=== PATIENT | male | born 1945 | race Caucasian/White ===

== ENCOUNTER 2021-11-21 19:24 | Inpatient (IN) ==
[2021-11-21 19:50] LABS: Basophils % 0.4 % (0.0-0.8); Eosinophils # 0.1 10*3/uL (0.0-0.87); Eosinophils % 1.7 % (0.00-10.9); Hematocrit 32.5 VOL% (42.0-52.0); Hemoglobin 10.7 GM/DL (14.0-18.0); Immature Granulocytes % 0.4 %; Immature Granulocytes Absolute 0.02 #; Lymphocytes # 0.7 10*3/uL (1.4-4.0); Lymphocytes % 15.8 % (21.2-54.2); Mean Corpuscular HGB Conc 32.9 GM/DL (32-36); Mean Corpuscular Volume 95.3 FL (87-102); Mean Platelet Volume 8.7 FL (9.6-12.0); Monocytes # 0.6 10*3/uL (0.11-0.8); Monocytes % 12.1 % (1.7-12.7); Neutrophils % 69.6 % (38.7-73.9); Platelet Count 142 T/CUMM (130-400); Red Blood Count 3.41 MC/CUMM (3.8-5.5); Red Cell Distribution Width 16.6 % (9.3-17.3); White Blood Count 4.6 T/CUMM (4-12)
[2021-11-21 20:01] LABS: INR 1.1
[2021-11-21 20:05] LABS: Albumin 2.5 G/DL (3.4-5.0); Bilirubin,Total 1.6 MG/DL (0.20-1.00); Calcium 7.2 MG/DL (8.5-10.1); Osmolality,Calculated 277.2 MOS/KG (273-304); Total Protein 5.1 G/DL (6.4-8.2)
[2021-11-21] MEDS ORDERED: SODIUM CHLORIDE 0.9% 1,000 ML IV STA (20:07)
[2021-11-21] MEDS ORDERED: ONDANSETRON 4 MG/2 ML VIAL IV PRN (21:39)
[2021-11-21] MEDS ORDERED: GLUCAGON 1 MG VIAL IM PRN (21:39)
[2021-11-21] MEDS ORDERED: DIPHENOXYLATE/ATROPINE 2.5-0.025 MG TABLET PO PRN (22:01)
[2021-11-21] MEDS ORDERED: DEXTROSE 10% 250 ML BAG IV PRN (22:27)
[2021-11-22] MEDS ORDERED: INFLUENZA VIRUS VACCINE 0.5 ML SYRINGE IM ONE (00:53)
[2021-11-22] MEDS ORDERED: PNEUMOCOCCAL VACCINE (13 VALENT) 0.5 ML SYRINGE IM ONE (00:53)
[2021-11-22 01:35] LABS: Basophils % 0.3 % (0.0-0.8); Eosinophils # 0.1 10*3/uL (0.0-0.87); Eosinophils % 3.2 % (0.00-10.9); Hematocrit 31.4 VOL% (42.0-52.0); Hemoglobin 10.5 GM/DL (14.0-18.0); Immature Granulocytes % 0.9 %; Immature Granulocytes Absolute 0.03 #; Lymphocytes # 0.7 10*3/uL (1.4-4.0); Lymphocytes % 21.1 % (21.2-54.2); Mean Corpuscular HGB Conc 33.4 GM/DL (32-36); Mean Corpuscular Volume 95.2 FL (87-102); Mean Platelet Volume 8.9 FL (9.6-12.0); Monocytes # 0.5 10*3/uL (0.11-0.8); Monocytes % 14.5 % (1.7-12.7); Platelet Count 137 T/CUMM (130-400); Red Cell Distribution Width 16.6 % (9.3-17.3); White Blood Count 3.5 T/CUMM (4-12)
[2021-11-22 02:07] LABS: Eosinophils 2 % (0-10); Lymphocytes 26 % (20-55); Platelet Estimate Adequate; Total Cells Counted 100
[2021-11-22] MEDS: ACETAMINOPHEN 325 MG TABLET PO PRN ×2 (02:26→14:55)
[2021-11-22 02:58] LABS: Albumin 2.3 G/DL (3.4-5.0); Bilirubin,Total 1.4 MG/DL (0.20-1.00); Calcium 7.3 MG/DL (8.5-10.1); Osmolality,Calculated 275.2 MOS/KG (273-304); Potassium 3.7 MMOL/L (3.5-5.1); Total Protein 5.5 G/DL (6.4-8.2)
[2021-11-22] MEDS ORDERED: ENOXAPARIN 120 MG/0.8 ML SYRINGE SUBCUT ONE (04:00)
[2021-11-22] MEDS ORDERED: ASPIRIN 325 MG TABLET PO ONE (04:00)
[2021-11-22] MEDS: ALBUTEROL 2.5 MG/3 ML NEB RESP TX SCH ×4 (07:25→19:32)
[2021-11-22] MEDS ORDERED: MIDODRINE 5 MG TABLET PO SCH (09:00)
[2021-11-22] MEDS ORDERED: ENOXAPARIN 40 MG/0.4 ML SYRINGE SUBCUT SCH (09:00)
[2021-11-22] MEDS: ATORVASTATIN 40 MG TABLET PO SCH (09:02)
[2021-11-22] MEDS: MIDODRINE 5 MG TABLET PO SCH ×3 (09:02→17:07)
[2021-11-22] MEDS: INSULIN LISPRO 100 UNIT/ML SUBCUT SCH ×4 (09:02→21:04)
[2021-11-22] MEDS: POTASSIUM CHLORIDE 10 MEQ TABLET PO SCH ×2 (09:02→21:04)
[2021-11-22] MEDS: CITALOPRAM 20 MG TABLET PO SCH (09:03)
[2021-11-22] MEDS: PANTOPRAZOLE 40 MG TABLET PO SCH (09:03)
[2021-11-22] MEDS: MORPHINE 2 MG/1 ML SYRINGE IV PRN ×2 (11:32→16:39)
[2021-11-22] MEDS: DIGOXIN 0.25 MG TABLET PO SCH (14:01)
[2021-11-22] MEDS ORDERED: TUBERCULIN SKIN TEST 0.1 ML SYRINGE INTRADERM ONE (15:27)
[2021-11-23] MEDS: ALBUTEROL 2.5 MG/3 ML NEB RESP TX SCH ×4 (00:25→20:39)
[2021-11-23] MEDS: MORPHINE 2 MG/1 ML SYRINGE IV PRN ×2 (00:51→21:29)
[2021-11-23 04:57] LABS: Basophils % 0.3 % (0.0-0.8); Eosinophils # 0.2 10*3/uL (0.0-0.87); Eosinophils % 4.1 % (0.00-10.9); Hematocrit 32.5 VOL% (42.0-52.0); Immature Granulocytes % 0.3 %; Immature Granulocytes Absolute 0.01 #; Lymphocytes # 0.9 10*3/uL (1.4-4.0); Lymphocytes % 23.8 % (21.2-54.2); Mean Corpuscular HGB Conc 33.8 GM/DL (32-36); Mean Corpuscular Volume 94.5 FL (87-102); Mean Platelet Volume 8.8 FL (9.6-12.0); Monocytes # 0.5 10*3/uL (0.11-0.8); Monocytes % 13.1 % (1.7-12.7); Neutrophils % 58.4 % (38.7-73.9); Platelet Count 138 T/CUMM (130-400); Red Blood Count 3.44 MC/CUMM (3.8-5.5); Red Cell Distribution Width 16.7 % (9.3-17.3); White Blood Count 3.7 T/CUMM (4-12)
[2021-11-23 05:17] LABS: Albumin 2.5 G/DL (3.4-5.0); Bilirubin,Total 0.9 MG/DL (0.20-1.00); Calcium 7.6 MG/DL (8.5-10.1); Osmolality,Calculated 272.5 MOS/KG (273-304); Potassium 4.6 MMOL/L (3.5-5.1); Total Protein 5.7 G/DL (6.4-8.2)
[2021-11-23] MEDS: PANTOPRAZOLE 40 MG TABLET PO SCH (08:23)
[2021-11-23] MEDS: INSULIN LISPRO 100 UNIT/ML SUBCUT SCH ×4 (08:23→22:41)
[2021-11-23] MEDS: MIDODRINE 5 MG TABLET PO SCH ×3 (08:24→17:18)
[2021-11-23] MEDS: POTASSIUM CHLORIDE 10 MEQ TABLET PO SCH ×2 (08:24→21:29)
[2021-11-23] MEDS: CITALOPRAM 20 MG TABLET PO SCH (08:24)
[2021-11-23] MEDS: ATORVASTATIN 40 MG TABLET PO SCH (08:24)
[2021-11-23] MEDS: DIGOXIN 0.25 MG TABLET PO SCH (13:39)
[2021-11-24] MEDS: ALBUTEROL 2.5 MG/3 ML NEB RESP TX SCH ×4 (01:05→19:06)
[2021-11-24] MEDS: ZINC OXIDE PASTE 113 GM TUBE TOP PRN (03:19)
[2021-11-24 05:07] LABS: Basophils % 0.3 % (0.0-0.8); Eosinophils # 0.1 10*3/uL (0.0-0.87); Eosinophils % 3.7 % (0.00-10.9); Hematocrit 33.1 VOL% (42.0-52.0); Hemoglobin 10.9 GM/DL (14.0-18.0); Immature Granulocytes % 0.8 %; Immature Granulocytes Absolute 0.03 #; Lymphocytes # 1.1 10*3/uL (1.4-4.0); Mean Corpuscular HGB Conc 32.9 GM/DL (32-36); Mean Corpuscular Volume 95.4 FL (87-102); Mean Platelet Volume 8.8 FL (9.6-12.0); Monocytes # 0.4 10*3/uL (0.11-0.8); Monocytes % 11.7 % (1.7-12.7); Neutrophils % 53.5 % (38.7-73.9); Platelet Count 131 T/CUMM (130-400); Red Blood Count 3.47 MC/CUMM (3.8-5.5); Red Cell Distribution Width 16.8 % (9.3-17.3); White Blood Count 3.8 T/CUMM (4-12)
[2021-11-24 05:34] LABS: Albumin 2.5 G/DL (3.4-5.0); Bilirubin,Total 0.9 MG/DL (0.20-1.00); Calcium 7.9 MG/DL (8.5-10.1); Osmolality,Calculated 271.4 MOS/KG (273-304); Potassium 4.3 MMOL/L (3.5-5.1); Total Protein 5.6 G/DL (6.4-8.2)
[2021-11-24] MEDS: POTASSIUM CHLORIDE 10 MEQ TABLET PO SCH ×2 (08:46→21:23)
[2021-11-24] MEDS: ATORVASTATIN 40 MG TABLET PO SCH (08:46)
[2021-11-24] MEDS: INSULIN LISPRO 100 UNIT/ML SUBCUT SCH ×4 (08:46→21:23)
[2021-11-24] MEDS: PANTOPRAZOLE 40 MG TABLET PO SCH (08:47)
[2021-11-24] MEDS: MIDODRINE 5 MG TABLET PO SCH ×3 (08:47→17:32)
[2021-11-24] MEDS: CITALOPRAM 20 MG TABLET PO SCH (08:47)
[2021-11-24] MEDS: MORPHINE 2 MG/1 ML SYRINGE IV PRN (12:01)
[2021-11-24] MEDS: DIGOXIN 0.25 MG TABLET PO SCH (12:02)
[2021-11-24] MEDS: DEXAMETHASONE 0.5 MG TABLET PO SCH (17:32)
[2021-11-24] MEDS: ACETAMINOPHEN 325 MG TABLET PO PRN (21:23)
[2021-11-25] MEDS: ALBUTEROL 2.5 MG/3 ML NEB RESP TX SCH ×4 (00:16→20:05)
[2021-11-25 06:01] LABS: Basophils % 0.2 % (0.0-0.8); Eosinophils # 0.1 10*3/uL (0.0-0.87); Eosinophils % 2.6 % (0.00-10.9); Hematocrit 33.4 VOL% (42.0-52.0); Hemoglobin 10.9 GM/DL (14.0-18.0); Immature Granulocytes % 0.5 %; Immature Granulocytes Absolute 0.02 #; Lymphocytes # 0.9 10*3/uL (1.4-4.0); Lymphocytes % 21.4 % (21.2-54.2); Mean Corpuscular HGB Conc 32.6 GM/DL (32-36); Mean Corpuscular Volume 95.2 FL (87-102); Mean Platelet Volume 9.1 FL (9.6-12.0); Monocytes # 0.5 10*3/uL (0.11-0.8); Monocytes % 10.5 % (1.7-12.7); NRBC # 0.02 10*3/uL; Neutrophils % 64.8 % (38.7-73.9); Platelet Count 127 T/CUMM (130-400); Red Blood Count 3.51 MC/CUMM (3.8-5.5); Red Cell Distribution Width 16.9 % (9.3-17.3); White Blood Count 4.3 T/CUMM (4-12)
[2021-11-25 06:23] LABS: Albumin 2.5 G/DL (3.4-5.0); Bilirubin,Total 1.1 MG/DL (0.20-1.00); Osmolality,Calculated 268.5 MOS/KG (273-304); Potassium 4.5 MMOL/L (3.5-5.1); Total Protein 5.8 G/DL (6.4-8.2)
[2021-11-25] MEDS: DEXAMETHASONE 0.5 MG TABLET PO SCH (08:54)
[2021-11-25] MEDS: PANTOPRAZOLE 40 MG TABLET PO SCH (08:54)
[2021-11-25] MEDS: CITALOPRAM 20 MG TABLET PO SCH (08:57)
[2021-11-25] MEDS: ATORVASTATIN 40 MG TABLET PO SCH (08:57)
[2021-11-25] MEDS: MIDODRINE 5 MG TABLET PO SCH ×3 (08:58→17:49)
[2021-11-25] MEDS: ACETAMINOPHEN 325 MG TABLET PO PRN (08:59)
[2021-11-25] MEDS: POTASSIUM CHLORIDE 10 MEQ TABLET PO SCH ×2 (09:00→20:56)
[2021-11-25] MEDS: INSULIN LISPRO 100 UNIT/ML SUBCUT SCH ×4 (09:01→20:56)
[2021-11-25] MEDS: ZINC OXIDE PASTE 113 GM TUBE TOP PRN (09:02)
[2021-11-25 10:37] LABS: Folate 16.94 NG/ML (5.38-24.0)
[2021-11-25 10:39] LABS: Ferritin 597.2 ng/mL (26-388)
[2021-11-25] MEDS: MORPHINE 2 MG/1 ML SYRINGE IV PRN ×2 (10:42→18:31)
[2021-11-25] MEDS: DIGOXIN 0.25 MG TABLET PO SCH (13:29)
[2021-11-25] MEDS: INSULIN NPH/REGULAR 70/30 100 UNIT/ML SUBCUT SCH (20:57)
[2021-11-26] MEDS: ALBUTEROL 2.5 MG/3 ML NEB RESP TX SCH ×2 (00:28→08:42)
[2021-11-26] MEDS: MORPHINE 2 MG/1 ML SYRINGE IV PRN (03:18)
[2021-11-26 05:47] LABS: Basophils % 0.3 % (0.0-0.8); Eosinophils # 0.2 10*3/uL (0.0-0.87); Eosinophils % 2.7 % (0.00-10.9); Hematocrit 33.4 VOL% (42.0-52.0); Hemoglobin 11.2 GM/DL (14.0-18.0); Immature Granulocytes Absolute 0.06 #; Lymphocytes # 1.4 10*3/uL (1.4-4.0); Lymphocytes % 24.1 % (21.2-54.2); Mean Corpuscular HGB Conc 33.5 GM/DL (32-36); Mean Corpuscular Volume 95.2 FL (87-102); Mean Platelet Volume 9.3 FL (9.6-12.0); Monocytes # 0.6 10*3/uL (0.11-0.8); Monocytes % 10.3 % (1.7-12.7); NRBC # 0.03 10*3/uL; Neutrophils % 61.6 % (38.7-73.9); Platelet Count 150 T/CUMM (130-400); Red Blood Count 3.51 MC/CUMM (3.8-5.5); Red Cell Distribution Width 17.1 % (9.3-17.3); White Blood Count 5.9 T/CUMM (4-12)
[2021-11-26 06:07] LABS: Albumin 2.4 G/DL (3.4-5.0); Bilirubin,Total 1.1 MG/DL (0.20-1.00); Calcium 8.4 MG/DL (8.5-10.1); Potassium 4.1 MMOL/L (3.5-5.1); Total Protein 5.9 G/DL (6.4-8.2)
[2021-11-26] MEDS: INSULIN LISPRO 100 UNIT/ML SUBCUT SCH ×2 (09:21→12:24)
[2021-11-26] MEDS: INSULIN NPH/REGULAR 70/30 100 UNIT/ML SUBCUT SCH (09:22)
[2021-11-26] MEDS: POTASSIUM CHLORIDE 10 MEQ TABLET PO SCH (09:22)
[2021-11-26] MEDS: PANTOPRAZOLE 40 MG TABLET PO SCH (09:23)
[2021-11-26] MEDS: CITALOPRAM 20 MG TABLET PO SCH (09:23)
[2021-11-26] MEDS: ATORVASTATIN 40 MG TABLET PO SCH (09:23)
[2021-11-26] MEDS: MIDODRINE 5 MG TABLET PO SCH ×2 (09:23→12:37)
[2021-11-26] MEDS: DEXAMETHASONE 0.5 MG TABLET PO SCH (09:23)
[2021-11-26] MEDS ORDERED: INFLUENZA VIRUS VACCINE 0.5 ML SYRINGE IM ONE (11:08)
[2021-11-26] MEDS ORDERED: PNEUMOCOCCAL VACCINE (13 VALENT) 0.5 ML SYRINGE IM ONE (11:30)
[2021-11-26] MEDS: DIGOXIN 0.25 MG TABLET PO SCH (12:38)
[2021-11-26 12:48] VITALS: BP 108/70
== END 2021-11-26 13:31 | disposition swing bed (61) | DRG 312 ==
LOC: EDUNIT# → EDBD → N.EDINP 19:24 → N.ED 19:24 → N.TELES 22:58 → SUATTDRO 11-22 09:34
PROVIDERS: ADMIT Family Medicine; ATTEND Internal Medicine

== ENCOUNTER 2022-02-15 14:59 | Observation (INO) ==
[~2022-02-15 14:59] MED LIST: INFLUENZA VIRUS VACCINE 0.5 ML SYRINGE IM ONE
[2022-02-15] MEDS ORDERED: ONDANSETRON 4 MG/2 ML VIAL IV STA (15:41)
[2022-02-15] MEDS ORDERED: MORPHINE 2 MG/1 ML SYRINGE IV STA (15:41)
[2022-02-15] MEDS ORDERED: SODIUM CHLORIDE 0.9% 1,000 ML IV STA (15:41)
[2022-02-15 16:01] LABS: Basophils # 0.1 10*3/uL (0.0-0.2); Basophils % 1.1 % (0.0-0.8); Eosinophils # 0.1 10*3/uL (0.0-0.87); Eosinophils % 1.5 % (0.00-10.9); Hematocrit 37.2 VOL% (42.0-52.0); Hemoglobin 12.6 GM/DL (14.0-18.0); Immature Granulocytes % 1.4 %; Immature Granulocytes Absolute 0.12 #; Lymphocytes # 2.4 10*3/uL (1.4-4.0); Lymphocytes % 27.9 % (21.2-54.2); Mean Corpuscular HGB Conc 33.9 GM/DL (32-36); Mean Corpuscular Volume 93.7 FL (87-102); Mean Platelet Volume 9.6 FL (9.6-12.0); Monocytes # 0.9 10*3/uL (0.11-0.8); Neutrophils % 57.1 % (38.7-73.9); Platelet Count 146 T/CUMM (130-400); Red Blood Count 3.97 MC/CUMM (3.8-5.5); Red Cell Distribution Width 14.8 % (9.3-17.3); White Blood Count 8.5 T/CUMM (4-12)
[2022-02-15 16:17] LABS: PT Patient Result 11.2 SECS (10.1-12.1); Partial Thromboplastin Time 27.1 SECS (23.7-32.9)
[2022-02-15 16:19] LABS: Albumin 2.8 G/DL (3.4-5.0); Bilirubin,Total 0.6 MG/DL (0.20-1.00); Calcium 8.3 MG/DL (8.5-10.1); Osmolality,Calculated 285.5 MOS/KG (273-304); Potassium 3.2 MMOL/L (3.5-5.1); Total Protein 6.1 G/DL (6.4-8.2)
[2022-02-15] MEDS ORDERED: ONDANSETRON 4 MG/2 ML VIAL IV PRN (17:44)
[2022-02-15] MEDS: SODIUM CHLORIDE 0.9% 1,000 ML IV SCH (18:00)
[2022-02-15] MEDS ORDERED: POTASSIUM CHLORIDE 20 MEQ TABLET PO ONE (18:13)
[2022-02-15] MEDS: cefTRIAXone 1,000 MG in SODIUM CHLORIDE 0.9% 100 ML IV SCH (18:45)
[2022-02-15] MEDS: metroNIDAZOLE INJ 500 MG/100 ML PREMIX IV SCH (19:00)
[2022-02-15] MEDS ORDERED: ENOXAPARIN 40 MG/0.4 ML SYRINGE SUBCUT SCH (21:00)
[2022-02-15 22:08] LABS: Hematocrit 37.3 VOL% (42.0-52.0); Hemoglobin 12.5 GM/DL (14.0-18.0)
[2022-02-16] MEDS: SODIUM CHLORIDE 0.9% 1,000 ML IV SCH ×3 (02:48→22:34)
[2022-02-16] MEDS: metroNIDAZOLE INJ 500 MG/100 ML PREMIX IV SCH ×3 (02:48→17:51)
[2022-02-16 05:01] LABS: Basophils # 0.1 10*3/uL (0.0-0.2); Eosinophils # 0.2 10*3/uL (0.0-0.87); Eosinophils % 1.9 % (0.00-10.9); Hematocrit 36.5 VOL% (42.0-52.0); Hemoglobin 12.4 GM/DL (14.0-18.0); Immature Granulocytes % 0.6 %; Immature Granulocytes Absolute 0.05 #; Mean Corpuscular Volume 94.6 FL (87-102); Mean Platelet Volume 9.8 FL (9.6-12.0); Monocytes # 0.9 10*3/uL (0.11-0.8); Neutrophils % 60.5 % (38.7-73.9); Platelet Count 154 T/CUMM (130-400); Red Blood Count 3.86 MC/CUMM (3.8-5.5); White Blood Count 7.8 T/CUMM (4-12)
[2022-02-16 05:26] LABS: Albumin 2.8 G/DL (3.4-5.0); Bilirubin,Total 0.8 MG/DL (0.20-1.00); Calcium 8.5 MG/DL (8.5-10.1); Osmolality,Calculated 279.9 MOS/KG (273-304); Potassium 3.6 MMOL/L (3.5-5.1)
[2022-02-16] MEDS ORDERED: GLUCAGON 1 MG VIAL IM PRN (08:17)
[2022-02-16] MEDS ORDERED: DEXTROSE 10% 250 ML BAG IV PRN (08:20)
[2022-02-16] MEDS: PANTOPRAZOLE 40 MG VIAL IV SCH (09:17)
[2022-02-16 10:47] LABS: Hematocrit 36.6 VOL% (42.0-52.0); Hemoglobin 12.5 GM/DL (14.0-18.0)
[2022-02-16] MEDS: INSULIN LISPRO 100 UNIT/ML SUBCUT SCH ×3 (12:19→21:51)
[2022-02-16] MEDS ORDERED: ZINC OXIDE PASTE 113 GM TUBE TOP PRN (12:33)
[2022-02-16] MEDS: DIGOXIN 0.25 MG TABLET PO SCH (14:02)
[2022-02-16] MEDS ORDERED: INSULIN GLARGINE 100 UNIT/ML SUBCUT SCH (21:00)
[2022-02-16] MEDS: cefTRIAXone 1,000 MG in SODIUM CHLORIDE 0.9% 100 ML IV SCH (21:50)
[2022-02-16] MEDS: carvediloL 25 MG TABLET PO SCH (21:50)
[2022-02-16] MEDS: DESITIN 4OZ/NYSTATIN 15 GRAM MIXTURE PASTE TOP SCH (21:51)
[2022-02-16] MEDS: MORPHINE 2 MG/1 ML SYRINGE IV PRN (23:57)
[2022-02-17] MEDS: metroNIDAZOLE INJ 500 MG/100 ML PREMIX IV SCH ×2 (02:15→11:24)
[2022-02-17] MEDS: MORPHINE 2 MG/1 ML SYRINGE IV PRN (04:39)
[2022-02-17 04:48] LABS: Basophils % 0.5 % (0.0-0.8); Eosinophils # 0.1 10*3/uL (0.0-0.87); Eosinophils % 1.4 % (0.00-10.9); Hematocrit 34.1 VOL% (42.0-52.0); Hemoglobin 11.5 GM/DL (14.0-18.0); Immature Granulocytes % 0.8 %; Immature Granulocytes Absolute 0.05 #; Lymphocytes # 1.1 10*3/uL (1.4-4.0); Lymphocytes % 16.3 % (21.2-54.2); Mean Corpuscular HGB Conc 33.7 GM/DL (32-36); Mean Corpuscular Volume 94.7 FL (87-102); Mean Platelet Volume 9.6 FL (9.6-12.0); Monocytes # 0.5 10*3/uL (0.11-0.8); Monocytes % 8.2 % (1.7-12.7); Neutrophils % 72.8 % (38.7-73.9); Platelet Count 133 T/CUMM (130-400); Red Cell Distribution Width 14.7 % (9.3-17.3); White Blood Count 6.5 T/CUMM (4-12)
[2022-02-17 05:06] LABS: Calcium 8.3 MG/DL (8.5-10.1); Osmolality,Calculated 284.2 MOS/KG (273-304)
[2022-02-17] MEDS ORDERED: MAGNESIUM SULF RIDER 2 GM/50 ML PREMIX IV ONE (07:26)
[2022-02-17] MEDS ORDERED: INSULIN GLARGINE 100 UNIT/ML SUBCUT SCH (09:00)
[2022-02-17] MEDS ORDERED: DEXAMETHASONE 0.5 MG TABLET PO SCH (09:00)
[2022-02-17] MEDS ORDERED: CITALOPRAM 20 MG TABLET PO SCH (09:00)
[2022-02-17] MEDS ORDERED: ATORVASTATIN 40 MG TABLET PO SCH (09:00)
[2022-02-17] MEDS: INSULIN LISPRO 100 UNIT/ML SUBCUT SCH ×2 (09:26→11:27)
[2022-02-17] MEDS: carvediloL 25 MG TABLET PO SCH (09:27)
[2022-02-17] MEDS: DESITIN 4OZ/NYSTATIN 15 GRAM MIXTURE PASTE TOP SCH (09:28)
[2022-02-17] MEDS: PANTOPRAZOLE 40 MG VIAL IV SCH (09:58)
[2022-02-17 14:00] VITALS: BP 147/75
[2022-02-17] MEDS: DIGOXIN 0.25 MG TABLET PO SCH (14:11)
== END 2022-02-17 14:36 | disposition home health service (06) ==
LOC: EDUNIT# → EDBD → N.EDINP 14:59 → N.ED 14:59 → N.TELES 18:30
PROVIDERS: ADMIT Internal Medicine; ATTEND Internal Medicine

== ENCOUNTER 2022-04-01 22:30 | Observation (INO) ==
[2022-04-01] MEDS ORDERED: INSULIN REGULAR 100 UNIT/ML IV STA (23:05)
[2022-04-01 23:24] LABS: Arterial Base Excess iSTAT 1 MMOL/L (-2.5-2.5); Arterial Bicarbonate iSTAT 24.8 MMOL/L (20-26); Arterial O2 Saturation iSTAT 97 % (95-100); Arterial PCO2 iSTAT 37 MM HG (35-48); Arterial PO2 iSTAT 84 MM HG (80-95); Arterial Total CO2 iSTAT 26 MMO/L (23-27)
[2022-04-01 23:29] LABS: Basophils # 0.1 10*3/uL (0.0-0.2); Basophils % 0.5 % (0.0-0.8); Eosinophils % 0.2 % (0.00-10.9); Hemoglobin 13.3 GM/DL (14.0-18.0); Immature Granulocytes % 1.7 %; Immature Granulocytes Absolute 0.18 #; Lymphocytes % 9.1 % (21.2-54.2); Mean Corpuscular HGB Conc 34.1 GM/DL (32-36); Mean Corpuscular Volume 92.6 FL (87-102); Mean Platelet Volume 9.2 FL (9.6-12.0); Monocytes # 0.5 10*3/uL (0.11-0.8); Monocytes % 4.9 % (1.7-12.7); Neutrophils % 83.6 % (38.7-73.9); Platelet Count 189 T/CUMM (130-400); Red Blood Count 4.21 MC/CUMM (3.8-5.5); Red Cell Distribution Width 14.7 % (9.3-17.3); White Blood Count 10.82 T/CUMM (4-12)
[2022-04-01] MEDS ORDERED: FUROSEMIDE 40 MG/4 ML VIAL IV STA (23:37)
[2022-04-01 23:43] LABS: INR 0.9; PT Patient Result 10.2 SECS (10.1-12.1)
[2022-04-01 23:51] LABS: Albumin 3.1 G/DL (3.4-5.0); Bilirubin,Total 0.5 MG/DL (0.20-1.00); Calcium 9.1 MG/DL (8.5-10.1); Osmolality,Calculated 293.2 MOS/KG (273-304); Potassium 4.3 MMOL/L (3.5-5.1); Total Protein 6.7 G/DL (6.4-8.2)
[2022-04-02] MEDS ORDERED: ENOXAPARIN 30 MG/0.3 ML SYRINGE SUBCUT STA (00:46)
[2022-04-02] MEDS ORDERED: ENOXAPARIN 100 MG/ML SYRINGE SUBCUT STA (00:49)
[2022-04-02] MEDS ORDERED: hydrALAZINE 20 MG/1 ML VIAL IV PRN (01:26)
[2022-04-02] MEDS ORDERED: GLUCAGON 1 MG VIAL IM PRN (01:26)
[2022-04-02] MEDS ORDERED: DEXTROSE 10% 250 ML BAG IV PRN (01:44)
[2022-04-02 03:25] LABS: Basophils % 0.3 % (0.0-0.8); Eosinophils % 0.2 % (0.00-10.9); Hematocrit 39.3 VOL% (42.0-52.0); Hemoglobin 13.2 GM/DL (14.0-18.0); Immature Granulocytes % 1.1 %; Immature Granulocytes Absolute 0.13 #; Lymphocytes # 1.5 10*3/uL (1.4-4.0); Lymphocytes % 12.9 % (21.2-54.2); Mean Corpuscular HGB Conc 33.6 GM/DL (32-36); Mean Corpuscular Volume 90.8 FL (87-102); Mean Platelet Volume 9.3 FL (9.6-12.0); Monocytes # 0.8 10*3/uL (0.11-0.8); Monocytes % 6.6 % (1.7-12.7); Neutrophils % 78.9 % (38.7-73.9); Platelet Count 187 T/CUMM (130-400); Red Blood Count 4.33 MC/CUMM (3.8-5.5); Red Cell Distribution Width 14.6 % (9.3-17.3); White Blood Count 11.76 T/CUMM (4-12)
[2022-04-02 03:44] LABS: Risk Ratio 4.71; Thyroid Stimulating Hormone 0.674 uIU/ml (0.358-3.74); VLDL Cholesterol 25.4 MG/DL
[2022-04-02 06:08] LABS: Albumin 3.3 G/DL (3.4-5.0); Bilirubin,Total 0.6 MG/DL (0.20-1.00); Calcium 9.3 MG/DL (8.5-10.1); Osmolality,Calculated 281.1 MOS/KG (273-304); Potassium 3.3 MMOL/L (3.5-5.1); Total Protein 6.7 G/DL (6.4-8.2)
[2022-04-02] MEDS: INSULIN LISPRO 100 UNIT/ML SUBCUT SCH ×4 (07:32→21:48)
[2022-04-02] MEDS: PANTOPRAZOLE 40 MG TABLET PO SCH (08:52)
[2022-04-02] MEDS: FUROSEMIDE 40 MG/4 ML VIAL IV SCH ×2 (08:53→15:55)
[2022-04-02] MEDS: ACETAMINOPHEN 325 MG TABLET PO PRN ×2 (09:56→23:41)
[2022-04-02] MEDS: POTASSIUM CHLORIDE 20 MEQ TABLET PO PRN ×2 (09:57→13:47)
[2022-04-02] MEDS ORDERED: hydroCHLOROthiazide 25 MG TABLET PO SCH (11:00)
[2022-04-02] MEDS: DEXAMETHASONE 0.5 MG TABLET PO SCH (11:59)
[2022-04-02] MEDS: CITALOPRAM 20 MG TABLET PO SCH (11:59)
[2022-04-02] MEDS: POTASSIUM CHLORIDE 20 MEQ TABLET PO SCH ×2 (11:59→21:38)
[2022-04-02] MEDS: ATORVASTATIN 40 MG TABLET PO SCH (12:00)
[2022-04-02] MEDS: carvediloL 25 MG TABLET PO SCH ×2 (12:00→21:38)
[2022-04-02] MEDS: ENALAPRIL 20 MG TABLET PO SCH ×2 (12:00→21:38)
[2022-04-02] MEDS: hydroCHLOROthiazide 25 MG TABLET PO SCH ×2 (12:03→21:38)
[2022-04-02] MEDS ORDERED: ENOXAPARIN 100 MG/ML SYRINGE SUBCUT SCH (13:00)
[2022-04-02] MEDS: DIGOXIN 0.25 MG TABLET PO SCH (13:47)
[2022-04-02] MEDS ORDERED: INSULIN NPH/REG 70/30 100 UNIT/ML SUBCUT SCH (21:00)
[2022-04-02] MEDS ORDERED: ENOXAPARIN 40 MG/0.4 ML SYRINGE SUBCUT SCH (21:00)
[2022-04-02] MEDS: APIXABAN 2.5 MG TABLET PO SCH (21:38)
[2022-04-03 03:13] LABS: Basophils % 0.3 % (0.0-0.8); Eosinophils # 0.1 10*3/uL (0.0-0.87); Eosinophils % 0.9 % (0.00-10.9); Hematocrit 39.9 VOL% (42.0-52.0); Hemoglobin 13.5 GM/DL (14.0-18.0); Immature Granulocytes % 0.9 %; Immature Granulocytes Absolute 0.11 #; Lymphocytes # 2.4 10*3/uL (1.4-4.0); Lymphocytes % 20.5 % (21.2-54.2); Mean Corpuscular HGB Conc 33.8 GM/DL (32-36); Mean Corpuscular Volume 92.1 FL (87-102); Monocytes # 0.7 10*3/uL (0.11-0.8); Monocytes % 6.2 % (1.7-12.7); Neutrophils % 71.2 % (38.7-73.9); Platelet Count 214 T/CUMM (130-400); Red Blood Count 4.33 MC/CUMM (3.8-5.5); Red Cell Distribution Width 14.6 % (9.3-17.3)
[2022-04-03 03:22] LABS: Calcium 9.1 MG/DL (8.5-10.1); Osmolality,Calculated 276.7 MOS/KG (273-304); Potassium 3.8 MMOL/L (3.5-5.1)
[2022-04-03] MEDS: INSULIN LISPRO 100 UNIT/ML SUBCUT SCH ×2 (08:39→11:39)
[2022-04-03] MEDS: PANTOPRAZOLE 40 MG TABLET PO SCH (08:41)
[2022-04-03] MEDS: hydroCHLOROthiazide 25 MG TABLET PO SCH (08:41)
[2022-04-03] MEDS: APIXABAN 2.5 MG TABLET PO SCH (08:41)
[2022-04-03] MEDS: ENALAPRIL 20 MG TABLET PO SCH (08:41)
[2022-04-03] MEDS: CITALOPRAM 20 MG TABLET PO SCH (08:42)
[2022-04-03] MEDS: carvediloL 25 MG TABLET PO SCH (08:42)
[2022-04-03] MEDS: ATORVASTATIN 40 MG TABLET PO SCH (08:42)
[2022-04-03] MEDS: POTASSIUM CHLORIDE 20 MEQ TABLET PO SCH (08:42)
[2022-04-03] MEDS: DEXAMETHASONE 0.5 MG TABLET PO SCH (08:42)
[2022-04-03] MEDS: FUROSEMIDE 40 MG/4 ML VIAL IV SCH (08:42)
[2022-04-03] MEDS ORDERED: INSULIN NPH/REG 70/30 100 UNIT/ML SUBCUT SCH (09:00)
[2022-04-03] MEDS: ACETAMINOPHEN 325 MG TABLET PO PRN (10:08)
[2022-04-03 12:00] VITALS: BP 113/66
[2022-04-03] MEDS: DIGOXIN 0.25 MG TABLET PO SCH (12:35)
== END 2022-04-03 14:23 | disposition home or self-care (01) ==
LOC: N.EDINP 22:30 → N.ED 22:30 → N.2W 04-02 03:03
PROVIDERS: ADMIT Internal Medicine; ATTEND Internal Medicine

== ENCOUNTER 2022-04-09 13:14 | Inpatient (IN) ==
[2022-04-09 14:01] LABS: Arterial Base Excess iSTAT 0 MMOL/L (-2.5-2.5); Arterial Bicarbonate iSTAT 23.7 MMOL/L (20-26); Arterial O2 Saturation iSTAT 98 % (95-100); Arterial PCO2 iSTAT 36 MM HG (35-48); Arterial PO2 iSTAT 98 MM HG (80-95); Arterial Total CO2 iSTAT 25 MMO/L (23-27); Arterial pH iSTAT 7.431 (7.35-7.45)
[2022-04-09 14:39] LABS: Basophils # 0.1 10*3/uL (0.0-0.2); Basophils % 0.8 % (0.0-0.8); Eosinophils # 0.1 10*3/uL (0.0-0.87); Hematocrit 40.2 VOL% (42.0-52.0); Hemoglobin 13.6 GM/DL (14.0-18.0); Immature Granulocytes % 2.5 %; Immature Granulocytes Absolute 0.32 #; Lymphocytes # 2.8 10*3/uL (1.4-4.0); Lymphocytes % 22.2 % (21.2-54.2); Mean Corpuscular HGB Conc 33.8 GM/DL (32-36); Mean Corpuscular Volume 94.4 FL (87-102); Mean Platelet Volume 9.1 FL (9.6-12.0); Monocytes # 0.8 10*3/uL (0.11-0.8); Monocytes % 6.4 % (1.7-12.7); Neutrophils % 67.1 % (38.7-73.9); Platelet Count 234 T/CUMM (130-400); Red Blood Count 4.26 MC/CUMM (3.8-5.5); Red Cell Distribution Width 14.6 % (9.3-17.3); White Blood Count 12.72 T/CUMM (4-12)
[2022-04-09 14:47] LABS: INR 0.9; PT Patient Result 10.1 SECS (10.1-12.1)
[2022-04-09 15:09] LABS: Albumin 3.1 G/DL (3.4-5.0); Bilirubin,Total 0.6 MG/DL (0.20-1.00); Calcium 8.7 MG/DL (8.5-10.1); Osmolality,Calculated 286.8 MOS/KG (273-304); Potassium 3.5 MMOL/L (3.5-5.1); Total Protein 6.6 G/DL (6.4-8.2)
[2022-04-09 16:59] LABS: Bacteria,Urine Occasional /HPF (Few); Hyaline Casts,Urine 29 /LPF (0-3); Mucus,Urine Occasional /LPF (Occasional); RBC,Urine 1 /HPF (0-4); Squamous Epithelial Cell,Urine Occasional /HPF (0-10)
[2022-04-09 17:02] LABS: Glucose,Urine (UA) Negative (Negative); Ketones,Urine Trace mg/dL (Negative); Protein,Urine Negative (Negative); Urine Appearance Clear (Clear); Urine Color Yellow (Yellow); Urine Specific Gravity > 1.030 (1.001-1.035)
[2022-04-09 17:03] LABS: Bilirubin,Urine Small mg/dL (Negative); Blood, Urine Negative (Negative); Nitrite,Urine Negative (Negative); Urine Urobilinogen 0.2 eU/dL (<2.0)
[2022-04-09] MEDS ORDERED: SODIUM CHLORIDE 0.9% 500 ML IV STA (17:29)
[2022-04-09] MEDS ORDERED: ASPIRIN 325 MG TABLET PO STA (17:32)
[2022-04-09] MEDS ORDERED: DOCUSATE SODIUM 100 MG CAPSULE PO PRN (18:01)
[2022-04-09] MEDS ORDERED: ONDANSETRON 4 MG/2 ML VIAL IV PRN (18:01)
[2022-04-09] MEDS ORDERED: NITROGLYCERIN SL 0.4 MG TABLET SL PRN (18:01)
[2022-04-09] MEDS ORDERED: ACETAMINOPHEN 325 MG TABLET PO PRN (18:01)
[2022-04-09] MEDS ORDERED: GLUCAGON 1 MG VIAL IM PRN (18:16)
[2022-04-09] MEDS ORDERED: DEXTROSE 10% 250 ML BAG IV PRN (18:16)
[2022-04-09 18:35] LABS: Thyroid Stimulating Hormone 4.33 uIU/ml (0.358-3.74)
[2022-04-09] MEDS: HEPARIN DRIP 25,000 UNITS/500 ML PREMIX IV SCH (19:34)
[2022-04-09] MEDS: carvediloL 25 MG TABLET PO SCH (21:11)
[2022-04-09] MEDS: INSULIN LISPRO 100 UNIT/ML SUBCUT SCH (21:11)
[2022-04-09] MEDS: ZALEPLON 5 MG CAPSULE PO SCH (22:44)
[2022-04-10 01:31] LABS: Basophils # 0.1 10*3/uL (0.0-0.2); Basophils % 0.6 % (0.0-0.8); Eosinophils # 0.1 10*3/uL (0.0-0.87); Eosinophils % 1.1 % (0.00-10.9); Hematocrit 36.9 VOL% (42.0-52.0); Hemoglobin 12.2 GM/DL (14.0-18.0); Immature Granulocytes Absolute 0.22 #; Lymphocytes # 2.7 10*3/uL (1.4-4.0); Lymphocytes % 24.9 % (21.2-54.2); Mean Corpuscular HGB Conc 33.1 GM/DL (32-36); Mean Corpuscular Volume 94.4 FL (87-102); Mean Platelet Volume 9.1 FL (9.6-12.0); Monocytes # 0.8 10*3/uL (0.11-0.8); Monocytes % 7.1 % (1.7-12.7); Neutrophils % 64.3 % (38.7-73.9); Platelet Count 205 T/CUMM (130-400); Red Blood Count 3.91 MC/CUMM (3.8-5.5); Red Cell Distribution Width 14.7 % (9.3-17.3); White Blood Count 10.88 T/CUMM (4-12)
[2022-04-10 01:40] LABS: Calcium 8.1 MG/DL (8.5-10.1); Osmolality,Calculated 285.1 MOS/KG (273-304); Potassium 3.1 MMOL/L (3.5-5.1)
[2022-04-10] MEDS: HEPARIN DRIP 25,000 UNITS/500 ML PREMIX IV SCH (08:45)
[2022-04-10 09:20] LABS: Free T4 (Free Thyroxine) 1.11 NG/DL (0.76-1.46)
[2022-04-10] MEDS: INSULIN LISPRO 100 UNIT/ML SUBCUT SCH ×4 (09:50→22:17)
[2022-04-10] MEDS ORDERED: MAGNESIUM SULF RIDER 2 GM/50 ML PREMIX IV ONE (09:52)
[2022-04-10] MEDS: CITALOPRAM 20 MG TABLET PO SCH (11:13)
[2022-04-10] MEDS: APIXABAN 2.5 MG TABLET PO SCH ×2 (11:13→22:11)
[2022-04-10] MEDS: ATORVASTATIN 40 MG TABLET PO SCH (11:14)
[2022-04-10] MEDS: PANTOPRAZOLE 40 MG TABLET PO SCH (11:14)
[2022-04-10] MEDS: FUROSEMIDE 40 MG TABLET PO SCH (11:14)
[2022-04-10] MEDS: carvediloL 25 MG TABLET PO SCH ×2 (11:14→22:11)
[2022-04-10] MEDS: POTASSIUM CHLORIDE 20 MEQ TABLET PO SCH ×4 (13:20→17:43)
[2022-04-10] MEDS: DIGOXIN 0.25 MG TABLET PO SCH (13:21)
[2022-04-10] MEDS: ZALEPLON 5 MG CAPSULE PO SCH (22:11)
[2022-04-11 04:01] LABS: Basophils # 0.1 10*3/uL (0.0-0.2); Basophils % 0.6 % (0.0-0.8); Eosinophils # 0.1 10*3/uL (0.0-0.87); Eosinophils % 1.7 % (0.00-10.9); Hemoglobin 11.5 GM/DL (14.0-18.0); Immature Granulocytes % 1.7 %; Immature Granulocytes Absolute 0.13 #; Lymphocytes % 26.2 % (21.2-54.2); Mean Corpuscular HGB Conc 32.9 GM/DL (32-36); Mean Corpuscular Volume 94.1 FL (87-102); Mean Platelet Volume 9.2 FL (9.6-12.0); Monocytes # 0.8 10*3/uL (0.11-0.8); Monocytes % 10.5 % (1.7-12.7); Neutrophils % 59.3 % (38.7-73.9); Platelet Count 196 T/CUMM (130-400); Red Blood Count 3.72 MC/CUMM (3.8-5.5); Red Cell Distribution Width 14.8 % (9.3-17.3)
[2022-04-11 04:30] LABS: Calcium 8.2 MG/DL (8.5-10.1); Osmolality,Calculated 279.4 MOS/KG (273-304); Potassium 3.6 MMOL/L (3.5-5.1)
[2022-04-11] MEDS: INSULIN LISPRO 100 UNIT/ML SUBCUT SCH ×4 (09:08→21:13)
[2022-04-11] MEDS: ASPIRIN EC 81 MG TABLET PO SCH (09:12)
[2022-04-11] MEDS: POTASSIUM CHLORIDE 20 MEQ TABLET PO SCH ×2 (09:13→21:12)
[2022-04-11] MEDS: APIXABAN 2.5 MG TABLET PO SCH ×2 (09:13→21:13)
[2022-04-11] MEDS: FUROSEMIDE 40 MG TABLET PO SCH (09:13)
[2022-04-11] MEDS: carvediloL 25 MG TABLET PO SCH ×2 (09:13→21:13)
[2022-04-11] MEDS: CITALOPRAM 20 MG TABLET PO SCH (09:13)
[2022-04-11] MEDS: PANTOPRAZOLE 40 MG TABLET PO SCH (09:14)
[2022-04-11] MEDS: ATORVASTATIN 40 MG TABLET PO SCH (09:14)
[2022-04-11] MEDS ORDERED: REGADENOSON 0.4 MG/5 ML SYRINGE IV ONE (11:50)
[2022-04-11] MEDS: DIGOXIN 0.25 MG TABLET PO SCH (12:48)
[2022-04-11] MEDS: ZALEPLON 5 MG CAPSULE PO SCH (21:13)
[2022-04-12 05:00] LABS: Basophils # 0.1 10*3/uL (0.0-0.2); Basophils % 0.8 % (0.0-0.8); Eosinophils # 0.1 10*3/uL (0.0-0.87); Hematocrit 34.2 VOL% (42.0-52.0); Hemoglobin 11.3 GM/DL (14.0-18.0); Immature Granulocytes % 1.4 %; Immature Granulocytes Absolute 0.09 #; Lymphocytes # 1.7 10*3/uL (1.4-4.0); Lymphocytes % 24.9 % (21.2-54.2); Mean Corpuscular Volume 95.5 FL (87-102); Mean Platelet Volume 9.3 FL (9.6-12.0); Monocytes # 0.8 10*3/uL (0.11-0.8); Monocytes % 12.2 % (1.7-12.7); Neutrophils % 58.7 % (38.7-73.9); Platelet Count 184 T/CUMM (130-400); Red Blood Count 3.58 MC/CUMM (3.8-5.5); Red Cell Distribution Width 14.6 % (9.3-17.3); White Blood Count 6.63 T/CUMM (4-12)
[2022-04-12 05:17] LABS: Calcium 7.8 MG/DL (8.5-10.1); Osmolality,Calculated 274.5 MOS/KG (273-304); Potassium 3.9 MMOL/L (3.5-5.1)
[2022-04-12 08:43] VITALS: BP 130/73
[2022-04-12] MEDS: INSULIN LISPRO 100 UNIT/ML SUBCUT SCH ×2 (08:49→13:27)
[2022-04-12] MEDS: ATORVASTATIN 40 MG TABLET PO SCH (08:49)
[2022-04-12] MEDS: POTASSIUM CHLORIDE 20 MEQ TABLET PO SCH (08:49)
[2022-04-12] MEDS: carvediloL 25 MG TABLET PO SCH (08:49)
[2022-04-12] MEDS: ASPIRIN EC 81 MG TABLET PO SCH (08:49)
[2022-04-12] MEDS: PANTOPRAZOLE 40 MG TABLET PO SCH (08:49)
[2022-04-12] MEDS: CITALOPRAM 20 MG TABLET PO SCH (08:50)
[2022-04-12] MEDS: FUROSEMIDE 40 MG TABLET PO SCH (08:50)
[2022-04-12] MEDS: APIXABAN 2.5 MG TABLET PO SCH (08:50)
== END 2022-04-12 11:50 | disposition home health service (06) | DRG 175 ==
LOC: N.ED 13:14 → N.TELES 18:01 → SUATTDRO 18:01 → N.TELES 20:27
PROVIDERS: ADMIT Internal Medicine; ATTEND Family Medicine